=== PATIENT | female | born 1990 | race Caucasian/White ===

== ENCOUNTER 2020-10-12 13:48 | Emergency (ER) | payer MEDICAID, OTHER ==
[~2020-10-12] VITALS: Ht 165.1 cm; Wt 52.2 kg
[2020-10-12 13:57] VITALS: BP 110/73
--- NOTE | 2020-10-12 13:58 | NUR ---
ED Nurse Note:pt. c/o all over body itching and pain, no rash reported, pt. is A/Ox4, no fever
[2020-10-12] MEDS ORDERED: EPIPEN 2-P0.3 MG/0.3 IM (14:47)
[2020-10-12] MEDS ORDERED: BENADRYL25 M3 PO (14:47)
[2020-10-12] MEDS ORDERED: FAMOTIDINE20 MG ORAL (14:47)
[2020-10-12] MEDS ORDERED: AMOXICILLIN500 MG ORAL ×2 (14:47)
--- NOTE | 2020-10-12 14:47 | Emergency Room Report ---
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 She has been itching them "non stop". She denies recent change in diet (she is vegan), soaps, detergents, travel, sick contacts. She states that the only change is amoxicillin that she has been giving to her cat which her cat "has been spitting up all over her". She states shes allergic to many antibiotics. Denies tongue swelling, stridor, drooling, dysphagia, odynophagia, CP, SOB, wheezing, hemoptysis, CORTEZ, photophobia, neck pain, back pain, or other symptoms. States she took 20ml of benadryl this morning with mild relief. The patient's symptoms were gradual onset, severity was moderate, duration since 2 days. Quality: itching Past medical history: Denies Past surgical history: Denies Smoking: Denies Alcohol use: Denies Drug use: Denies Review of systems: CONST: No fevers or chills, No night sweats PULMONARY: No productive cough, No shortness of breath CARDIAC: No chest pain, No palpitations GI: No vomiting, No diarrhea , No melena_or_BRBPR : No dysuria, No hematuria, No discharge NEURO: No new_focal_weakness_or_numbness, No confusion, No vision changes 14 point Review of Systems is otherwise negative except per HPI Physical Exam: GENERAL: Awake_alert_ nontoxic, no acute distress Spo2 100% on RA -normal EYES: Extraocular muscles are intact. Conjunctivae clear. Lids without swelling ENT: External nose and ear normal_in_appearance. Oropharynx clear. Head_atraumatic, Moist_oral_mucosa No stidor, drooling, hoarse voice. No nuchal rigidity. No petechiae. NECK: No JVD. No meningismus. No thyromegaly. Supple. Trachea midline RESP: Normal respiratory effort. Symmetric rise. No stridor. Clear_to_auscultation_No_rales_No_wheezes CARDIAC: Regular rate and regular rhytm. No_significant pedal edema. ABDOMEN: Soft. Nondistended. Nontender_No_rebound_or_guarding. MSK: Normal muscle tone, without rigidity. Extremities without asymmetric deformity or swelling. SKIN: folliculitis to L shoulder. Mild warmth with palpation. R axillary contact dermatitis vs urticaria. NEUROLOGIC: Alert, oriented x3. Motor_and_sensation_grossly_intact. No truncal ataxia. Gait_normal Psych: Normal mood and affect, normal judgment and insight - COORDINATION OF CARE Case was discussed with: Patient Any labs that were ordered were interpreted as part of the medical decision making: Medical Decision Making/Plan: Initial VSS stable. Airway is intact with no stridor, drooling, or increased WOB. No oral, tongue or lip swelling noted. Patient appears to be presenting with mild to moderate allergic reaction, there is no evidence of angioedema, no oral involvement, no difficulty breathing or nausea vomiting. She has hx of anaphylaxis and carries epi pens at home. Patient is nontoxic and well-appearing the patient is tolerating fluids. The findings are minimal and due to nonprogression of symptoms here the patient is safe to discharge home. The patient feels comfortable with plan and will return immediately if symptoms begin to worsen. Labs show eosinophilia, with likely cause of allergic reaction/atopy given her history. I have instructed her to follow up with tar leveler, educational technology specialist. She denies hx of autoimmune conditions. May need referral to rheum. Doubt fungal or parasitic infection. No evidence of DRESS. Patient given a dose of steroids and Benadryl here in the emergency department. Patient will be discharged with an EpiPen and Benadryl, pepcid. Patient was instructed to avoid all potential allergic stimuli in the future and follow up with an tar leveler in 24-48hrs. Advised her ot stop giving her cat amoxicillin The patient was instructed to avoid potential precipitating factor and to follow up with their regular physician for referral to customer specialist for defi nitive allergy testing. Pertinent results reviewed with the patient. I educated the patient on the current treatment plan including the risks, benefits, and alternatives. I also discussed the extent and limitations of the current evaluation. The patient expressed understanding and agreement with plan. I recommended PMD follow-up within 1-2 days. Also advised that the patient return to the Emergency Department as soon as possible if they experience any new, persistent, or worsening symptoms. Allergies: Coded Allergies: AZITHROMYCIN (Verified Allergy, Unknown, 10/12/20) CLARITHROMYCIN (Verified Allergy, Unknown, 10/12/20) COVID-19 Screening Contact w/high risk pt: No Experienced COVID-19 symptoms?: No COVID-19 Testing performed EDGE MOLDER: No Nursing Documentation-[facility] Past Medical History: No Stated History Physical Exam Vital Signs Date Time Temp Pulse Resp B/P (MAP) Pulse Ox O2 Delivery O2 Flow Rate FiO2 10/12/20 13:51 98.6 91 18 110/73 (85) 100 Room Air Sp02 EP Interpretation: reviewed, normal Medical Decision Making Diagnostic Impression: Primary Impression: Rash and other nonspecific skin eruption Additional Impressions: Contact dermatitis Folliculitis Eosinophilia Rhythm Strip Diag. Results Rhythm Strip Time: 14:45 EP Interpretation: yes Rate: 80 Rhythm: NSR, no PVC's, no ectopy Reevaluation Time: 14:46 Last Vital Signs Date Time Temp Pulse Resp B/P (MAP) Pulse Ox O2 Delivery O2 Flow Rate FiO2 10/12/20 13:57 98.6 80 18 110/73 100 Room Air Status: improved Disposition: HOME, SELF-CARE Admit Decision Time: 14:46 Condition: Stable Scripts Famotidine* (Pepcid 20mg tablet*) 20 Mg Tablet 20 MG ORAL DAILY for Gerd, #30 TAB 0 Refills Prov: Mary Mcdonald D.O. 10/12/20 Diphenhydramine HCl (Benadryl) 25 Mg Capsule 25 MG PO QID for itching for 5 Days, #20 CAP Prov: Mary Mcdonald.Reymundo 10/12/20 Epinephrine (Epipen 2-Donta) 0.3 Mg/0.3 Ml Auto.injct 0.3 MG IM ONCE for 1 Day, #1 EA Prov: Mary Mcdonald D.O. 10/12/20 Referrals: [facility] (PCP) Patient Instructions: Allergy Skin Testing, Contact Dermatitis, [id number], Folliculitis, Rash Additional Instructions: Stop giving your cat amoxicillin as you may be allergic. 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 Carry your EpiPen in case of worsening allergic reaction. Follow-up with your doctor sooner if your condition requires a more timely clinical reevaluation. Return to the emergency department immediately if you feel that your condition is worsening or if you have any new or concerning symptoms. Review your discharge instructions and take any prescriptions given as yaya d. [facility] PROVIDES FREE OR LOW-COST HEALTH SERVICES TO PEOPLE WHO CAN SHOW PROOF THAT THEY LIVE IN [facility]. TO FIND MORE CLINICS PARTNERED WITH [facility] TO PROVIDE SERVICE, PLEASE CALL . Mary Mcdonald D.O. Oct 12, 2020 14:47
[2020-10-12 15:15] LABS: BASOPHILS % (AUTO) 1.9 % (0.0-2.0); EOSINOPHILS % (AUTO) 6.8 % (0.0-3.0); HEMATOCRIT 31.4 % (37.0-47.0); HEMOGLOBIN 10.2 G/DL (12.0-16.0); LYMPHOCYTES % (AUTO) 19.5 % (20.0-45.0); MEAN CORPUSCULAR VOLUME 83 FL (80-99); NEUTROPHILS % (AUTO) 60.8 % (45.0-75.0); PLATELET COUNT 268 K/UL (150-450); RED BLOOD COUNT 3.78 M/UL (4.20-5.40); RED CELL DISTRIBUTION WIDTH 14.2 % (11.6-14.8); WHITE BLOOD COUNT 7.4 K/UL (4.8-10.8)
[2020-10-12 15:34] LABS: ANION GAP 3 mmol/L (5-15); BLOOD UREA NITROGEN 12 mg/dL (7-18); CALCIUM 8.5 MG/DL (8.5-10.1); CARBON DIOXIDE 28 MMOL/L (21-32); CHLORIDE 106 MMOL/L (98-107); CREATININE 0.7 MG/DL (0.55-1.30); POTASSIUM 4.6 MMOL/L (3.5-5.1); SODIUM 137 MMOL/L (136-145)
[2020-10-12 15:40] LABS: ALANINE AMINOTRANSFERASE 32 U/L (12-78); ALBUMIN 3.5 G/DL (3.4-5.0); ALBUMIN/GLOBULIN RATIO 1.2 (1.0-2.7); ALKALINE PHOSPHATASE 54 U/L (46-116); ASPARTATE AMINO TRANSFERASE 19 U/L (15-37); BILIRUBIN,TOTAL 0.2 MG/DL (0.2-1.0)
[2020-10-12 16:07] VITALS: BP 112/74
[2020-10-12 16:08] VITALS: BP 112/74
--- NOTE | 2020-10-12 16:08 | NUR ---
ED Nurse Note: Pt cleared by health care Provider for discharge. DC instructions/prescription was given and explained to pt and verbalized understanding of teachings. All medical deviecs such as ID band removed. Pt is AAO x4, ambulatory and left with all personal belongings.
== END 2020-10-12 16:15 | disposition home or self-care (01) ==
LOC: EMR 14:05
DX: R21 Rash and other nonspecific skin eruption (principal); L25.9 Unspecified contact dermatitis, unspecified cause; L73.9 Follicular disorder, unspecified; D72.10 Eosinophilia, unspecified; Z88.1 Allergy status to other antibiotic agents
CPT/HCPCS: 36415; 80053; 84702; 85025; J8540; Z7502; 99283